=== PATIENT | female | born 1965 | race Caucasian/White ===

== ENCOUNTER 2019-11-19 16:18 | Outpatient (REF) | payer OTHER, SELFPAY ==
[2019-11-21 18:43] LABS: COVID-19 RT-PCR UVMMC Result Negative (Negative)
== END 2019-11-19 16:38 ==
LOC: NCHCN 16:18
PROVIDERS: Visit Provider Nurse Practitioner Family
DX: J06.9 Acute upper respiratory infection, unspecified (principal)
CPT/HCPCS: U0003

== ENCOUNTER 2020-02-18 12:21 | Outpatient (REF) | payer OTHER, SELFPAY ==
[2020-02-18 19:38] LABS: Calculated LDL 121 mg/dL (<100); Cholesterol 207 mg/dL (<200); Glucose 102 mg/dL (74-106); HDL Cholesterol 78 mg/dL (40-60); TSH (W/Ref FT4) 1.29 uIU/mL (0.36-3.74); Triglyceride 44 mg/dL (<150)
== END 2020-02-18 12:41 ==
LOC: NCHCN 12:21
PROVIDERS: Visit Provider Nurse Practitioner
DX: Z00.00 Encounter for general adult medical examination without abnormal findings (principal); Z13.1 Encounter for screening for diabetes mellitus; Z13.29 Encounter for screening for other suspected endocrine disorder; Z13.220 Encounter for screening for lipoid disorders
CPT/HCPCS: 80061; 82947; 84443

== ENCOUNTER 2020-09-21 10:10 | Outpatient (REF) | payer OTHER, SELFPAY ==
--- NOTE | 2020-09-21 09:40 | SKI_PTH ---
PATIENT: Deanna Marks LOC: [facility] U#:[id number] AGE/SX: 55/F ROOM: RE09/21/[address]: Harry Pierson DO : 1965 BED: DIS: 09/21/2020 SPEC #: [id number] RECD: 09/21/20 17:57 STATUS: PANDA REShaina #: [id number] IFRHA: 09/21/20 09:[address]: Harry Pierson DEPT: Surgical Specimen RECD BY: Jess Rothman ENTERED: 09/21/20 17:57 SP TYPE: LAURIE AGUILERA DR: Baylee Pelayo Tissues: 1 - SKIN BIOPSY(SHAVE/PUNCH) 2 - SKIN BIOPSY(SHAVE/PUNCH) Procedures: SKIN LEVEL 4 Comments: [id number]
== END 2020-09-21 10:11 | disposition home or self-care (01) ==
LOC: LBN 10:10
PROVIDERS: PCP Nurse Practitioner; Visit Provider Otolaryngology Otolaryngology/Facial Plastic Surgery
DX: C44.722 Squamous cell carcinoma of skin of right lower limb, including hip (principal)
CPT/HCPCS: 88305

== ENCOUNTER 2021-04-11 13:26 | Outpatient (REF) | payer OTHER, SELFPAY ==
--- NOTE | 2021-04-11 12:00 | PAPFT_PTH ---
PATIENT: Deanna Marks LOC: [facility]#:[id number] AGE/SX: 55/F ROOM: RE04/11/[address]: Baylee Pelayo : 1965 BED: DIS: 04/11/2021 SPEC #: [id number] RECD: 04/11/21 18:27 STATUS: PANDA GALINDO #: [id number] IFRAH: 04/11/21 12:[address]: Baylee Pelayo DEPT: [facility] Cytology RECD BY: Jess Rothman Tissues: 1 - CX/ENDOCX FOR PAP SMEARS Procedures: PAP THIN PREP/UVM Screening HPV DNA PROBE Comments:
== END 2021-04-11 13:27 | disposition home or self-care (01) ==
LOC: NCHCN 13:26
PROVIDERS: PCP Nurse Practitioner; Visit Provider Nurse Practitioner
DX: Z12.4 Encounter for screening for malignant neoplasm of cervix (principal); Z11.51 Encounter for screening for human papillomavirus (HPV)
CPT/HCPCS: 88142; 87624

== ENCOUNTER 2021-04-13 01:02 | Outpatient (CLI) | payer OTHER, SELFPAY ==
--- NOTE | 2021-04-13 13:00 | DI.MAMMO_ITS ---
Exam(s) MAMMO SCREENING EXAM: MAMMO SCREENING CLINICAL HISTORY: SCREENING FOR BREAST CANCER Z12.39 TECHNIQUE: Mammograms were interpreted according to the usual protocol including computer analysis w [employer] CAD system, tomosynthesis and C-view imaging. COMPARISON: MAMMO BREAST KOMAL SCREENING BILATERAL from 09/24/2017 [facility] FINDINGS: The breasts are composed of scattered fibroglandular densities, Breast Density category B. No suspicious masses or suspicious microcalcifications are seen. No skin thickening or abnormal axillary lymph nodes are seen. There has been no significant change from prior exams. IMPRESSION: BI-RADS Category 1, Negative mammogram Yearly screening mammography is recommended. Breast Density - Category B, scattered fibroglandular densities. A negative radiographic report should not delay biopsy if a dominant or clinically suspicious mass is present. Up to ten percent of cancers are not identified on mammography. A negative report may reinforce clinical impression. Adenosis and dense breasts may obscure an underlying neoplasm. False positive reports average 6 to 10%. Patient will receive a letter notifying them of these results.
== END 2021-04-13 01:22 ==
PROVIDERS: PCP Nurse Practitioner; Visit Provider Nurse Practitioner
DX: Z12.31 Encounter for screening mammogram for malignant neoplasm of breast (principal)
CPT/HCPCS: 77063; 77067

== ENCOUNTER 2021-07-11 17:56 | Outpatient (REF) | payer OTHER, SELFPAY ==
[2021-07-11 15:02] LABS: HCT 41.6 % (36.0-46.0); HGB 13.6 g/dL (11.2-15.7); MCH 30.2 pg (27.0-33.0); MCHC 32.7 % (32.0-36.0); MCV 92.2 fL (80-95); MPV 10.3 fL (8.0-11.0); Platelet Count 320 10^3/uL (130-400); RBC 4.51 10^6/uL (3.93-5.22); RDW 12.8 % (11.7-14.6); RDW-SD 43.5 fL; WBC 6.97 10^3/uL (4.4-10.8)
[2021-07-11 15:43] LABS: ALT 26 U/L (14-59); AST 25 U/L (15-37); Albumin 3.8 g/dL (3.4-5.0); Alkaline Phosphatase 50 U/L (46-116); Anion Gap 8.7 mmol/L (3-11); BUN 22 mg/dL (7-18); Bilirubin, Total 0.3 mg/dL (0.2-1.0); CO2 26.3 mmol/L (21.0-32.0); CREATININE 0.8 mg/dL (0.55-1.02); Calcium 9.3 mg/dL (8.5-10.1); Chloride 104 mmol/L (98-107); Glucose 104 mg/dL (74-106); Potassium 4.4 mmol/L (3.5-5.1); Sodium 139 mmol/L (136-145); TSH 1.38 uIU/mL (0.36-3.74); Total Protein 6.9 g/dL (6.4-8.2)
== END 2021-07-11 17:57 | disposition home or self-care (01) ==
LOC: LBN 17:56
PROVIDERS: PCP Nurse Practitioner; Visit Provider Nurse Practitioner Family
DX: R53.83 Other fatigue (principal); R05.8 Other specified cough
CPT/HCPCS: 80053; 85027; 84443

== ENCOUNTER 2022-09-04 16:14 | Outpatient (REF) | payer BC, SELFPAY ==
[2022-09-04 16:26] LABS: Abs Immature Grans 0.02 10^3/uL (0.0-0.06); Absolute Basophil Count 0.05 10^3/uL (0.0-0.2); Absolute Monocyte Count 0.53 10^3/uL (0.1-0.8); Absolute Neutrophil Count 4.15 10^3/uL (1.2-6.7); Basophils % 0.6; Eosinophils % 1.3; HCT 44.5 % (36.0-46.0); HGB 14.8 g/dL (11.2-15.7); Immature Grans % 0.3; Lymphocytes % 38.2; MCHC 33.3 % (32.0-36.0); MCV 90 fL (80-95); MPV 9.4 fL (8.0-11.0); Monocytes % 6.8; Neutrophils % 52.8; Platelet Count 364 10^3/uL (130-400); RBC 4.93 10^6/uL (3.93-5.22); RDW 12.5 % (11.7-14.6); RDW-SD 41.1 fL; WBC 7.85 10^3/uL (4.4-10.8)
[2022-09-04 18:10] LABS: ALT 29 U/L (14-59); AST 20 U/L (15-37); Albumin 3.9 g/dL (3.4-5.0); Alkaline Phosphatase 55 U/L (46-116); BUN 13 mg/dL (7-18); Bilirubin, Total 0.4 mg/dL (0.2-1.0); CREATININE 0.7 mg/dL (0.55-1.02); Calcium 9.2 mg/dL (8.5-10.1); Calculated LDL 124 mg/dL (<100); Chloride 104 mmol/L (98-107); Cholesterol 206 mg/dL (<200); Estimated GFR 101.44 (mL/min/1.73m2); Glucose 86 mg/dL (74-106); HDL Cholesterol 72 mg/dL (40-60); Potassium 4.7 mmol/L (3.5-5.1); Sodium 143 mmol/L (136-145); TSH (W/Ref FT4) 1.55 uIU/mL (0.36-3.74); Total Protein 7.2 g/dL (6.4-8.2); Triglyceride 52 mg/dL (<150)
== END 2022-09-04 16:15 | disposition home or self-care (01) ==
LOC: NCHCN 16:14
PROVIDERS: PCP Nurse Practitioner Family; Visit Provider Nurse Practitioner Family
DX: R53.83 Other fatigue (principal); Z13.220 Encounter for screening for lipoid disorders
CPT/HCPCS: 80053; 80061; 84443; 85025

== ENCOUNTER 2022-11-08 01:21 | Outpatient (CLI) | payer BC, SELFPAY ==
--- NOTE | 2022-11-08 08:20 | DI.MAMMO_ITS ---
Exam(s) MAMMO SCREENING EXAM: MAMMO SCREENING CLINICAL HISTORY: SCREENING FOR BREAST CANCER Z12.39 TECHNIQUE: Bilateral full field digital CC and MLO mammographic images were obtained with 3D tomosyn thesis and utilizing computer aided detection (CAD). COMPARISON: Available for comparison. FINDINGS: Masses/Architectural Distortion: None seen. Microcalcifications: No suspicious pleomorphic-type are seen. Skin Thickening/Nipple Retraction: None. IMPRESSION: 1. No significant interval change with no specific features of malignancy noted. 2. Unless there is more urgent need, screening mammography is recommended, as per [place] [employer] guidelines. BI-RADS Category 1 - Negative Breast Density - Category B - Scattered areas of fibroglandular density Breast density category C or D implies that the patient has dense breast tissue. Dense breast tissue is very common and is not abnormal but dense breast tissue can make it harder to find cancer on a ma mmogram. Also, dense breast tissue may increase their breast cancer risk. This information about the result of the mammogram report was provided to the patient to raise their awareness. Use this report when you speak with the patient about their risks for breast cancer, which includes their family hist ory. At that time, you may recommend for more screening tests (Ultrasound or MRI) as they might be us eful based on their risk. A negative radiographic report should not delay biopsy if a dominant or clinically suspicious mass is present. Up to ten percent of cancers are not identified on mammography. A negative report may reinforce clinical impression. Adenosis and dense breasts may obscure an underlying neoplasm. False positive reports average 6 to 10%. Patient will receive a letter notifying them of these results.
== END 2022-11-08 01:41 ==
LOC: DI 01:21
PROVIDERS: PCP Nurse Practitioner Family; Visit Provider Nurse Practitioner Family
DX: Z12.31 Encounter for screening mammogram for malignant neoplasm of breast (principal)
CPT/HCPCS: 77063; 77067

== ENCOUNTER 2023-09-24 15:51 | Outpatient (REF) | payer OTHER, SELFPAY ==
[2023-09-24 19:51] LABS: Hemoglobin A1C 5.6 % (<5.7)
[2023-09-26 16:40] LABS: Calculated LDL 106 mg/dL (<160); Cholesterol 189 mg/dL (<200); HDL Cholesterol 68 mg/dL (>or=50); Triglyceride 76 mg/dL (<or=150)
== END 2023-09-24 15:52 | disposition home or self-care (01) ==
LOC: NCHCN 15:51
PROVIDERS: PCP Nurse Practitioner Family; Visit Provider Nurse Practitioner Family
DX: Z13.1 Encounter for screening for diabetes mellitus (principal); Z13.6 Encounter for screening for cardiovascular disorders
CPT/HCPCS: 80061; 83036

== ENCOUNTER 2024-07-30 01:52 | Outpatient (CLI) | payer OTHER, SELFPAY ==
--- NOTE | 2024-07-30 | DI.MRI_ITS ---
Exam(s) MR LOWER JOINT RT WO EXAM: MR LOWER JOINT RT WO CLINICAL HISTORY: Pain in rt knee, M25.561. TECHNIQUE: Multiplanar multisequence MRI was performed. COMPARISON: No exams were available for comparison FINDINGS: BONES: There is no fracture or contusion pattern. Surgical hardware related to ACL repair noted in distal femur and proximal tibia which creates artifact. Small artifact anterior to the patella. Spu rring from the femoral condyles and tibial plateaus. JOINTS: No joint effusion is present. Articular cartilage: Patellofemoral joint: Articular cartilage is mildly thinned. No focal defects. Medial femoral tibial joint: Cartilage thinning over the femoral condyle. Lateral femoral tibial joint: Cartilage thinning over the femoral condyle. LIGAMENTS/TENDONS: Anterior Cruciate: ACL repair appears intact Posterior Cruciate: Unremarkable. Medial Collateral:Unremarkable. Lateral Collateral ligament complex: Unremarkable. Extensor mechanism: Unremarkable. Medial retinaculum: Unremarkable. Lateral retinaculum: Unremarkable. Popliteus: Unremarkable. MENISCI: The medial meniscus is diminutive. No focal tear. The lateral meniscus is unremarkable. MUSCLES: Unremarkable. SOFT TISSUES: Loculated cysts versus ganglia are measuring 11 x 17 by 11 millimeters combined. Noted posterior to the posterior horn of the medial meniscus, medial to the PCL. IMPRESSION: Intact ACL repair. 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 Posterior degenerative cysts versus ganglia. DATA REPOSITORY:
== END 2024-07-30 02:12 ==
PROVIDERS: PCP Nurse Practitioner Family; Visit Provider Nurse Practitioner Family
DX: M17.11 Unilateral primary osteoarthritis, right knee (principal)
CPT/HCPCS: 73721

== ENCOUNTER 2024-09-25 09:38 | Outpatient (REF) | payer OTHER, SELFPAY ==
[2024-09-25 23:46] LABS: Campylobacter PCR Negative (Negative); Salmonella PCR Negative (Negative); Shiga Toxin PCR Negative (Negative); Shigella/Enteroinvasive Ecoli Negative (Negative)
== END 2024-09-25 09:39 | disposition home or self-care (01) ==
LOC: NCHCN 09:38
PROVIDERS: PCP Nurse Practitioner Family; Visit Provider Nurse Practitioner Family
DX: R19.7 Diarrhea, unspecified (principal)
CPT/HCPCS: 87177; 87209; 87505

== ENCOUNTER 2024-10-09 17:59 | Outpatient (REF) | payer OTHER, SELFPAY ==
[2024-10-09 21:21] LABS: Abs Immature Grans 0.01 10^3/uL (0.0-0.06); Absolute Basophil Count 0.04 10^3/uL (0.0-0.2); Absolute Eosinophil Count 0.39 10^3/uL (0.0-0.7); Absolute Lymphocyte Count 3.47 10^3/uL (1.2-3.4); Absolute Monocyte Count 0.47 10^3/uL (0.1-0.8); Absolute Neutrophil Count 3.22 10^3/uL (1.2-6.7); Basophils % 0.5 %; Eosinophils % 5.1 %; HCT 42.4 % (36.0-46.0); HGB 14.2 g/dL (11.2-15.7); Immature Grans % 0.1 %; Lymphocytes % 45.7 %; MCH 30.5 pg (27.0-33.0); MCHC 33.5 % (32.0-36.0); MCV 91 fL (80-95); MPV 9.7 fL (8.0-11.0); Monocytes % 6.2 %; Neutrophils % 42.4 %; Platelet Count 328 10^3/uL (130-400); RBC 4.65 10^6/uL (3.93-5.22); RDW 12.7 % (11.7-14.6); RDW-SD 41.9 fL
[2024-10-09 21:40] LABS: ALT 26 U/L (14-59); AST 19 U/L (15-37); Albumin 4.1 g/dL (3.4-5.0); Alkaline Phosphatase 55 U/L (46-116); Anion Gap 7.6 mmol/L (3-11); BUN 16 mg/dL (7-18); Bilirubin, Total 0.5 mg/dL (0.2-1.0); CO2 28.4 mmol/L (21.0-32.0); CREATININE 0.8 mg/dL (0.55-1.02); Calcium 9.4 mg/dL (8.5-10.1); Chloride 104 mmol/L (98-107); Estimated GFR 85.35 (mL/min/1.73m2); FREE T4 0.81 ng/dL (0.76-1.46); Glucose 78 mg/dL (74-106); Potassium 3.9 mmol/L (3.5-5.1); Sodium 140 mmol/L (136-145); TSH 1.71 uIU/mL (0.36-3.74); Total Protein 7.1 g/dL (6.4-8.2)
[2024-10-14 16:53] LABS: Tissue Transglutaminase Ab IgG 2.3 U/mL
== END 2024-10-09 18:00 | disposition home or self-care (01) ==
LOC: NCHCN 17:59
PROVIDERS: PCP Nurse Practitioner Family; Visit Provider Student in an Organized Health Care Education/Training Program
DX: R10.10 Upper abdominal pain, unspecified (principal); R19.7 Diarrhea, unspecified
CPT/HCPCS: 80053; 86364; 84439; 84443; 85025

== ENCOUNTER 2024-10-22 02:11 | Outpatient (CLI) | payer OTHER, SELFPAY ==
--- NOTE | 2024-10-22 | DI.US_ITS ---
Exam(s) US ABDOMEN LIMITED EXAM: US ABDOMEN LIMITED CLINICAL HISTORY: Upper abd pain, family h/o pancreatic ca, increasingly loose stools 1-2 yrs TECHNIQUE: Ultrasound abdomen performed using standard protocol. COMPARISON: No exams were available for comparison FINDINGS: LIVER: Normal size. Normalechogenicity. No focal liver lesions are seen.. GALLBLADDER: No evidence of cholelithiasis. No evidence of wall thickening. No pericholecystic fluid identified. MANN'S SIGN: Negative. BILIARY SYSTEM: No intrahepatic or extrahepatic biliary ductal dilation. RIGHT KIDNEY: Normal size. No evidence of renal calculi. No evidence of hydronephrosis. No suspicious renal mass. No cyst identified. PANCREAS: Normal where visualized. ABDOMINAL AORTA AND IVC: Visualized portions normal caliber. ASCITES: None seen. IMPRESSION: Normal sonographic appearance of the right upper quadrant. No visible pancreatic mass or cyst. DATA REPOSITORY:
--- NOTE | 2024-10-22 | DI.MAMMO_ITS ---
Exam(s) MAMMO SCREENING EXAM: MAMMO SCREENING CLINICAL HISTORY: Screening, Z12.31 TECHNIQUE: Mammograms were interpreted according to the usual protocol including computer analysis w [employer] CAD system, tomosynthesis and C-view imaging. COMPARISON: 2017 through 2022 FINDINGS: The breasts are composed of scattered fibroglandular densities, Breast Density category B. No suspicious masses or suspicious microcalcifications are seen. No skin thickening or abnormal axillary lymph nodes are seen. There has been no significant change from prior exams. IMPRESSION: BI-RADS Category 1, Negative mammogram Yearly screening mammography is recommended. Breast Density - Category B, scattered fibroglandular densities. Breast density Category C or D implies that the patient has dense breast tissue. Dense breast tissue can make it harder to find cancer on a mammogram. Dense breast tissue is also associated with an incr eased risk of breast cancer. This information about the result of the mammogram report was provided to the patient to raise their awareness. Use this report when you speak with the patient about their risks for breast cancer, which includes their family history. At that time, you may recommend additional screening tests (Ultrasoun d or MRI) as these tests may add significant information. A negative radiographic report should not delay biopsy if a dominant or clinically suspicious mass is present. Up to ten percent of cancers are not identified on mammography. A negative report may reinforce clinical impression. Adenosis and dense breasts may obscure an underlying neoplasm. False positive reports average 6 to 10%. Patient will receive a letter notifying them of these results.
== END 2024-10-22 02:31 ==
LOC: DI 02:11
PROVIDERS: PCP Nurse Practitioner Family; Visit Provider Nurse Practitioner Family
DX: Z12.31 Encounter for screening mammogram for malignant neoplasm of breast (principal); R92.323 Mammographic fibroglandular density, bilateral breasts; R10.10 Upper abdominal pain, unspecified
CPT/HCPCS: 77063; 77067; 76705

== ENCOUNTER 2024-12-16 10:51 | Emergency (ER) | payer OTHER, SELFPAY ==
[2024-12-16 11:07] VITALS: BP 113/72; PULSE 87; RESP 16; TEMP 37.7; O2SAT 94
[2024-12-16 11:29] LABS: Glucose Negative (Negative)
[2024-12-16 11:38] LABS: Abs Immature Grans 0.03 10^3/uL (0.0-0.06); HCT 42.6 % (36.0-46.0); HGB 14.3 g/dL (11.2-15.7); Immature Grans % 0.3 %; MCH 30.4 pg (27.0-33.0); MCHC 33.6 % (32.0-36.0); MCV 91 fL (80-95); MPV 9.1 fL (8.0-11.0); Platelet Count 299 10^3/uL (130-400); RBC 4.70 10^6/uL (3.93-5.22); RDW 12.7 % (11.7-14.6); RDW-SD 42.6 fL; WBC 11.80 10^3/uL (4.4-10.8)
--- NOTE | 2024-12-16 11:42 | W.ED.GENAD ---
Discharge Plan Disposition Patient Disposition: Home Discharge Details Clinical Impression: Acute diverticulitis Primary Care Provider: Cristopher Burns ED Provider: Elizabeth Ritter Home Meds and New Rx's Prescriptions: No Action fluorouracil 5 % cream 1 applic topical BID magnesium 300 mg PO Discharge Instructions Instructions: Clear Liquid Diet, Diverticulitis (DC) Additional Instructions: Please call your primary care provider this afternoon to set up a follow-up appointment by the end of the week for reassessment. I recommend that you follow a liquid diet and allow for bowel rest for the next couple of days until reassessment. You may advance diet slowly as tolerated, keeping with low fiber foods once you have improvement in symptoms Stay very well-hydrated, drinking plenty of fluid throughout the day. May use Tylenol 650 mg every 6 hours as needed for discomfort Heating pads may also provide some comfort Return to emergency care if you develop new fevers over 100.4 degrees, severe or worsening abdominal pain, inability to hold down fluids, decreased urine output, general feeling of unwellness, or if you are very worried and need to be rechecked again immediately Referrals: Cristopher Burns [Primary Care Provider, Medicine] HPI General Date/Time Provider Initiated Documentation: 12/16/24 10:58. HPI Narrative: Deanna is a 59year old female who presents to the emergency department today for evaluation of left upper quadrant pain. She reports pain started yesterday, is described as a continuous pressure in her left side that is accompanied by intermittent sharp stabbing pain. Has had decreased appetite since onset, as well as feeling like she has to have a bowel movement but is only able to small small amounts of soft stool at a time. Low grade fever today. Denies fevers above 100.4, chills, recent illness such as congestion/sore throat/cough, chest pain, difficulty breathing, vomiting, change in urine output/hematuria/dysuria, blood in stool. Last normal BM yesterday, today a smaller amount of loose stool. Denies history of abdominal surgeries other than [employer] procedures such as D+C. Denies significant past medical history such as heart disease, lung disease, diabetes, connective tissue disorders. LMP 15 years ago Physical exam remarkable for significant tenderness to palpation to left lower quadrant, also mild palpable tenderness to palpation to left upper quadrant. Abdomen soft, nondistended, no rigidity or guarding, no ecchymosis. Normoactive bowel sounds. No CVA tenderness. Easy work of breathing, lung sounds clear bilaterally. Normal heart sounds, regular rate and rhythm. Mucous membranes. Equal pulses bilaterally to upper and lower extremities. No color change to extremities D/dx includes but is not limited to: Diverticulitis, colitis, partial bowel obstruction, neoplasm, nephrolithiasis, ovarian cyst less likely I independently interpreted the following tests: CBC notable for mild leukocytosis, white cell count 11.8. CRP slightly elevated at 6.3. CMP, PT/INR, PTT, Lipase, UA all unremarkable. CT abdomen/pelvis performed, notable for acute diverticulitis involving descending colon, no complications noted. While in the emergency department, eDanna received Toradol for discomfort with good improvement of pain. She was able to tolerate p.o. ric jadon without difficulty. As patient has uncomplicated diverticulitis without SIRS criteria, severe pain/peritonitis, complications on CT scan, is under the age of 61, has no significant comorbidities/immunosuppression, and appears reliable for return visit/follow-up, patient management without oral antibiotics would be appropriate in this case. Decision was made to manage diverticulitis without antibiotics through shared decision making; I reviewed options available of antibiotics versus no antibiotics with patient, she says that she prefers no antibiotics; she is agreeable to close follow-up. Reviewed discharge instruction with patient, including red flags indicate need for return to emergency care. Encouraged calling today to schedule follow-up appointment within the week with PCPs office for reevaluation. Recommend liquid diet for the next couple of days to promote bowel rest. She voices agreement with plan of care. Related Data Home Medications ?Medication ?Instructions ?Recorded ?Confirmed fluorouracil 5 % topical cream 1 applic topical BID 02/12/22 02/12/22 magnesium 300 mg PO 12/25/22 Allergies Allergy/AdvReac Type Severity Reaction Status Date / Time No Known Allergies Allergy Verified 12/16/24 11:13 General Stated Complaint: Abd Prob BASSEM: 3 Exam Const General: cooperative, healthy appearing, comfortable, no acute distress, well developed and well groomed Nutritional Appearance: average body habitus and well nourished Orientation: alert and oriented x3 HENMT Head: normal to inspection Ears: hearing grossly normal bilaterally Face and sinus: normal facial exam Mouth: moist mucous membranes Resp Effort & Inspection: normal respiratory effort and able to speak in complete sentences Auscultation: clear to auscultation bilaterally Cardio Rate: regular rate Rhythm: regular rhythm GI Inspection: normal to inspection, no abdominal wall ecchymosis and non-distended Palpation: soft, not firm, no guarding, not rigid and tender in the LLQ Auscultation: normal bowel sounds General: No CVA tenderness Skin General skin exam: no rashes or lesions noted Neuro General: patient alert, patient oriented x3, tone normal and moves all extremities Course Vital Signs Vital signs: Vital Signs Temperature 37.7 C H 12/16/24 11:07 Pulse 87 12/16/24 11:07 Respiratory Rate 16 12/16/24 11:07 Blood Pressure 113/72 12/16/24 11:07 Pulse Oximetry 94 12/16/24 11:07 Temperature 37.7 C H 12/16/24 11:07 Temperature Source Oral 12/16/24 11:07 Pulse 87 12/16/24 11:07 Respiratory Rate 16 12/16/24 11:07 Blood Pressure 113/72 12/16/24 11:07 Pulse Oximetry 94 12/16/24 11:07 Pain Level 7 12/16/24 11:07 Lab/Test Results Lab/Test Results: Laboratory Tests Range/Units 12/16/24 11:15 Urine Color (Yellow) Yellow Urine Clarity (Clear) Clear Urine pH (5-8) 7.0 Ur Specific [place] (1.005-1.025) 1.015 Urine Protein (Neg-Trace) mg/dL Trace Urine Ketones (Negative) mg/dL 40 H Urine Blood (Negative) Negative Urine Nitrite (Negative) Negative Urine Bilirubin (Negative) Negative Urine Urobilinogen (Up to 0.2) mg/dL 0.2 Ur Leukocyte Esterase (Negative) Negative Urine Glucose (Negative) mg/dL Negative Medical Decision Making Imaging Data Radiologic Study: Radiologist's impression: Exam(s) CT ABDOMEN PELVIS W EXAM: CT ABDOMEN PELVIS W CLINICAL HISTORY: L sided abd pain, ++LLQ TECHNIQUE: Imaging Protocol: Axial computed tomography images with coronal and sagittal reformatted images were created and reviewed. CONTRAST MATERIAL: Intravenous: Omnipaque 350 Contrast volume:75 mL Oral: No COMPARISON: US US ABDOMEN LIMITED from 10/22/2024 FINDINGS: ABDOMEN: Lung Bases: No acute abnormality. Liver: Normal density. No measurable mass. Portal, Superior Mesenteric, and Splenic Veins: Unremarkable. Gallbladder and Biliary Tract: No radiodense calculus or dilation. Pancreas: Normal density, no abnormal calcifications or inflammatory process. Spleen: Normal. Adrenals: No masses seen. Kidneys: Normal size, contour and axis. No radiodense stones or obstructive uropathy. No masses seen. Abdominal Aorta: Abdominal portion non-dilated. Mild atherosclerotic calcification is present. Bowel: There is diverticulosis seen in the colon. There is bowel wall thickening seen in the descending colon consistent with diverticulitis. There is no evidence of bowel obstruction. The remainder of the bowel is unremarkable. Appendix is unremarkable. Peritoneal Cavity: There is no ascites. There is infiltration in the fat surrounding the inflamed descending colon. No focal fluid collection is seen to suggest an abscess. No free air. Lymph Nodes: Within normal limits. Bones: Within normal limits for the patient's age. Soft Tissues: Unremarkable. PELVIS: Bladder: Symmetric distention, no gross wall thickening. Reproductive Organs: Unremarkable as visualized. Lymph Nodes: Within normal limits. Bones: Within normal limits for the patient's age. IMPRESSION: Acute diverticulitis involving the descending colon. There is no abscess or free air. 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 (Acute) Medical History (Updated 12/16/24 @ 14:37 by Elizabeth Miles) Herpes labialis Recurrent UTI Encounter for lipid screening for cardiovascular disease Screening for thyroid disorder Encounter for vitamin deficiency screening At risk for sleep apnea Recurrent herpes labialis Headache, post-traumatic Skin lesion Squamous cell carcinoma Fatigue [id number] condition Concussion without loss of consciousness History of squamous cell carcinoma Social History Smoking/Tobacco Use Status: Never Smoking risk assessment performed?: Yes Alcohol Intake: current Alcohol Intake frequency: a few times a week Alcohol type: beer Substance use type: does not use Housing: house
--- NOTE | 2024-12-16 11:45 | DI.CT_ITS ---
Exam(s) CT ABDOMEN PELVIS W EXAM: CT ABDOMEN PELVIS W CLINICAL HISTORY: L sided abd pain, ++LLQ TECHNIQUE: Imaging Protocol: Axial computed tomography images with coronal and sagittal reformatted images were created and reviewed. CONTRAST MATERIAL: Intravenous: Omnipaque 350 Contrast volume:75 mL Oral: No COMPARISON: US US ABDOMEN LIMITED from 10/22/2024 FINDINGS: ABDOMEN: Lung Bases: No acute abnormality. Liver: Normal density. No measurable mass. Portal, Superior Mesenteric, and Splenic Veins: Unremarkable. Gallbladder and Biliary Tract: No radiodense calculus or dilation. Pancreas: Normal density, no abnormal calcifications or inflammatory process. Spleen: Normal. Adrenals: No masses seen. Kidneys: Normal size, contour and axis. No radiodense stones or obstructive uropathy. No masses seen. Abdominal Aorta: Abdominal portion non-dilated. Mild atherosclerotic calcification is present. Bowel: There is diverticulosis seen in the colon. There is bowel wall thickening seen in the descending colon consistent with diverticulitis. There is no evidence of bowel obstruction. The remainder of the bowel is unremarkable. Appendix is unremarkable. Peritoneal Cavity: There is no ascites. There is infiltration in the fat surrounding the inflamed descending colon. No focal fluid collection is seen to suggest an abscess. No free air. Lymph Nodes: Within normal limits. Bones: Within normal limits for the patient's age. Soft Tissues: Unremarkable. PELVIS: Bladder: Symmetric distention, no gross wall thickening. Reproductive Organs: Unremarkable as visualized. Lymph Nodes: Within normal limits. Bones: Within normal limits for the patient's age. IMPRESSION: Acute diverticulitis involving the descending colon. There is no abscess or free air. RADIATION DOSE DELIVERED: 389.65mGy.cm Total DLP DATA REPOSITORY: All CT scans at this facility are submitted to the National Radiology Data Registry (NRDR) Dose Index Registry (DIR) with the [employer] ([employer]). RADIATION OPTIMIZATION: All CT scans at this facility use at least one of these dose optimization techniques: automated exposure control; mA and/or kV adjustment per patient size (includes targeted exams where dose is matched to clinical indication); or iterative reconstruction.
[2024-12-16] MEDS: Ketorolac 15 MG/ML VIAL IVP (11:56)
[2024-12-16] MEDS: Normal Saline 500 ML 250 ML IV (11:56)
[2024-12-16 12:05] LABS: ALT 21 U/L (14-59); AST 13 U/L (15-37); Albumin 3.8 g/dL (3.4-5.0); Alkaline Phosphatase 45 U/L (46-116); Anion Gap 11.3 mmol/L (3-11); BUN 11 mg/dL (7-18); Bilirubin, Total 0.7 mg/dL (0.2-1.0); CO2 26.7 mmol/L (21.0-32.0); Calcium 9.4 mg/dL (8.5-10.1); Chloride 104 mmol/L (98-107); Estimated GFR 103.98 (mL/min/1.73m2); Glucose 100 mg/dL (74-106); Lipase 30 U/L (<78); Magnesium 2.0 mg/dL (1.8-2.4); Potassium 3.8 mmol/L (3.5-5.1); Sodium 142 mmol/L (136-145); Total Protein 7.5 g/dL (6.4-8.2)
[2024-12-16 12:09] LABS: INR 1.0 (0.9-1.1); PTT Activated 25.8 sec (20.6-30.2); Prothrombin Time 10.1 sec (9.1-11.1)
[2024-12-16] MEDS: Omnipaque 350 MG/ML 100 ML BTL IJ (12:48)
[2024-12-16] MEDS: Normal Saline - Diluent 50 ML VIAL IJ (12:49)
[2024-12-16 14:13] LABS: C-Reactive Protein 6.30 mg/dL (<or=0.5)
[2024-12-16 14:44] VITALS: BP 132/82; PULSE 66; RESP 16; O2SAT 97
== END 2024-12-16 15:03 | disposition home or self-care (01) ==
PROVIDERS: Emergency Provider Nurse Practitioner Family; PCP Student in an Organized Health Care Education/Training Program
DX: K57.32 Diverticulitis of large intestine without perforation or abscess without bleeding (principal)
CPT/HCPCS: 36415; 80053; 83690; 96374; 99285; 74177; 81003; 83735; 85025; 85610; 85730; 86140; 99284; J1885; J3490